=== PATIENT | male | born 1970 | race Caucasian/White ===

== ENCOUNTER → 2017-01-18 | Outpatient (CLI) | payer BC, OTHER ==
[~2017-01-18] MED LIST: EFFSR150 PO; IBUP-1450 PO
[2017-01-18 17:15] LABS: HEMATOCRIT 41.2 % (42-52)
[2017-01-18 17:53] LABS: THYROID STIMULATING HORMONE 0.755 uIu/ml (0.300-4.500)
== END | disposition home or self-care (01) ==
LOC: C.LAB 16:34
PROVIDERS: ATTEND Family Medicine
DX: R53.83 Other fatigue (principal); M79.1 Myalgia